=== PATIENT | female | born 1940 | race Caucasian/White ===

== ENCOUNTER 2019-02-14 07:40 | Day surgery (SDC) | payer OTHER, MEDICARE ==
[2019-02-10 13:02] VITALS: BMI 19.9
--- NOTE | 2019-02-14 07:02 | HP ---
History & Physical Update - History History: No Change - Physical Physical: No Change - Assessment Assessment: No Change - Plan Plan: No Change (Initial H&P completed on 02/10/19 by Oscar Joshi MD. No new complaints or medication. Here today for elective L3-L5 laminectomy.)
[2019-02-14] MEDS ORDERED: MIDAZOLAM HCL 2 MG/2 ML SINGLE DOSE VIAL ONE (11:04)
[2019-02-14] MEDS ORDERED: BUPIVACAINE HCL/PF 0.5% (5 MG/ML) 30 ML VIAL IJ ONE (11:04)
[2019-02-14] MEDS ORDERED: DEXAMETHASONE SOD PHOSPHATE/PF 10 MG/ML SDV ONE (11:04)
[2019-02-14] MEDS ORDERED: DEXMEDETOMIDINE HCL 200 MCG/2 ML IVPB ONE (11:15)
[2019-02-14] MEDS ORDERED: DEXAMETHASONE SOD PHOSPHATE 4 MG/1 ML VIAL ONE (11:49)
[2019-02-14] MEDS ORDERED: ONDANSETRON 4 MG/2 ML VIAL ONE (11:49)
[2019-02-14] MEDS ORDERED: ceFAZolin SODIUM 1 GM VIAL ONE (11:49)
[2019-02-14] MEDS ORDERED: LIDOCAINE 1%/EPI 1:100000 (20 ML MULTI DOSE VIAL) INF ONE (12:00)
[2019-02-14] MEDS ORDERED: GUM MASTIC/STORAX/MSAL/ALCOHOL 1 DRP DROPSBTL MC ONE (12:43)
[2019-02-14] MEDS ORDERED: methylPREDNISolone ACET (DEPO) 40 MG/1 ML VIAL ONE (12:43)
[2019-02-14] MEDS ORDERED: methylPREDNISolone ACET (DEPO) 40 MG/1 ML VIAL IM ONE (12:44)
[2019-02-14] MEDS ORDERED: ONDANSETRON 4 MG/2 ML VIAL IVPUSH PRN (13:23)
[2019-02-14] MEDS ORDERED: PROMETHAZINE HCL 25 MG/1 ML VIAL IVPUSH PRN (13:23)
[2019-02-14] MEDS ORDERED: oxyCODONE HCL 5 MG TABLET PO PRN ×2 (13:23)
--- NOTE | 2019-02-14 13:24 | SURG ---
Surgery Poultry Eviscerator Note Poultry Eviscerator: Hunter Lopez PA-C Date of Service: 02/14/19 Diagnosis: LBP, L3-L5 stenosis, RLE radiculopathy, HNP Procedure: L3-4 bilateral laminectomy, Right L4/5 discectomy I was present for the entirety of the operative procedure. For further detail, please refer to operative report. Visit type - Case Type Case Type: Scheduled - New patient This patient is new to me today: Yes Date on this admission: 02/14/19
--- NOTE | 2019-02-14 13:24 | OP ---
Operative Note - Note: Operative Date: 02/14/19 Pre-Operative Diagnosis: LBP, L3-L5 stenosis, RLE radiculopathy, HNP Operation: L3-L5 laminectomy (bilateral), discectomy Post-Operative Diagnosis: Same as Pre-op Surgeon: Tong Hutson Communications Assistant: Hunter Lopez Anesthesiologist/SPEECH PATHOLOGY ASSISTANT: Nick Rehman Anesthesia: Spinal Specimens Removed: Right L4-5 discectomy Estimated Blood Loss (mls): 20 Fluid Volume Replaced (mls): 150 Operative Report Dictated: Yes
[2019-02-14] MEDS ORDERED: ACETAMINOPHEN 325 MG TABLET (FP) ONE (13:56)
[2019-02-14] MEDS ORDERED: ACETAMINOPHEN 325 MG TABLET (FP) PO ONE (15:00)
[2019-02-14 16:47] VITALS: BP 118/57; PULSE 66; TEMP 97.9
--- NOTE | 2019-02-14 17:02 | OP ---
DATE OF OPERATION: 02/14/2019 PREOPERATIVE DIAGNOSIS: Spinal stenosis L3-4, L4-5. POSTOPERATIVE DIAGNOSIS: Spinal stenosis L3-4, L4-5. PROCEDURE PERFORMED: Laminectomy L3-4, L4-5. SURGEON: Tong Hutson MD FOAM RUBBER MOLDER: ROSE MARIE Otero ESTIMATED BLOOD LOSS: 50 mL. INTRAVENOUS FLUIDS: Per anesthesia. ANESTHESIA: Spinal/TLIP. COMPLICATIONS: There were none. DISPOSITION: Patient was brought to the PACU in stable condition. INDICATIONS FOR SURGERY: Patient is a 79-year-old female who has been suffering from pain from her back down her legs. X-rays and MRI were completed, which noted that she had spinal stenosis from L3 down to L5. She had gone through an exhaustive course of treatment for this, which included medications, physical therapy as well as injections. Unfortunately, her pain continued to persist despite all this. At this point, risks, benefits, and alternatives were discussed, and the patient consented to surgery. DESCRIPTION OF PROCEDURE: Patient was brought to the operating room by the anesthesia staff. After appropriate patient identification was performed, spinal anesthesia was given. TLIP block was also given. Patient was able to position herself prone onto the OR table with all areas of bony prominences well padded at this time. Two needles were placed into her back to ac off the L3-L5 segments. X-ray was taken to confirm this was correct. Needle was removed, and 10 mL of lidocaine with epinephrine was injected into her back. At this time, her back was prepped and draped in a sterile manner. At this point, a time-out was completed. Incision was made from the top of L3 down to the bottom of L5. Dissection was carried down to the fascia. Fascia was then split open at this time, and appropriate retractor was then placed in. A spinal needle was placed onto the L4 lamina to ac off the L4-L5 level. X-ray was taken to confirm this was correct. Needle was removed. Interspinous ligament at L4-L5 and L3-4 was removed. The spinous process at L4 was removed. The lamina of L4 was removed. The flavum was removed from L3 down to L5. A complete decompression was performed such that by the end of the procedure, the L4 and L5 nerve roots appeared to be well decompressed. The thecal sac was mobilized medially. A disk herniation was noted, and it was removed at this time. By the time of the procedure, all bleeding was well controlled at this time. Steroids was placed over the nerve root. FloSeal was placed over that. The fascia was closed with a No. 1 Vicryl suture. Subcutaneous tissue was closed with 2-0 Vicryl suture. Skin was closed with 3-0 Monocryl suture. Dermabond was applied. Steri-Strips were applied. A sterile dressing was applied. Patient was placed supine on the OR bed, brought to the PACU in stable condition. TONG HUTSON M.D. [id number] MTDD
--- NOTE | 2019-02-18 16:33 | PATH ---
Surgical Pathology Report Patient Name: QAMAR BENTLEY [facility]. Rec. #: [id number] /Age/Gender: 1940 (Age: 79) / F Account: [id number] [facility] Taken: 02/14/2019 Received: 02/14/2019 Reported: 02/18/2019 Physicians: Tong Hutson M.D. Specimen(s) Received L3 - 5 LUMBAR DISC Clinical History Spinal stenosis Final Diagnosis L3-5, LUMBAR DISC, LAMINECTOMY: CARTILAGE SHOWING NODULAR AGGREGATES OF POLARIZABLE CYRSTALLINE CALCIFIC MATERIAL, CONSISTENT WITH CHONDROCALCINOSIS (PSEUDOGOUT). FIBROCOLLAGENOUS TISSUE, BONE AND SKELETAL MUSCLE. Electronically Signed Beverley Alberts M.D. Gross Description Received in formalin labeled "L3-5 lumbar disc," is a 1.3 x 0.8 x 0.3 cm aggregate of harrell fragments of fibrocartilaginous tissue. The specimen is entirely submitted in one cassette. [facility]
== END 2019-02-14 16:35 | disposition home or self-care (01) ==
LOC: FASU 07:40
PROVIDERS: ATTEND Orthopaedic Surgery Orthopaedic Surgery of the Spine
PROC: 01NB0ZZ Release Lumbar Nerve, Open Approach (ICD-10-PCS; principal; 2019-02-14 12:09)
DX: M48.061 Spinal stenosis, lumbar region without neurogenic claudication (principal)
CPT/HCPCS: 72100-TC-FY; 76000-TC-FY; 88304-TC; 94760